=== PATIENT | male | born 1975 | race Caucasian/White ===

== ENCOUNTER 2020-10-16 16:34 | Emergency (ER) | payer MEDICARE, OTHER, SELFPAY ==
[2020-10-16 16:35] VITALS: BP 152/86; PULSE 91; RESP 12; TEMP 36.8; O2SAT 98; BMI 34.0
--- NOTE | 2020-10-16 16:45 | ED_ITS ---
HPI - Fall General Chief Complaint: Fall Stated Complaint: Fell-hit head no LOC Time Seen by Provider: 10/16/20 16:35 Source: patient Mode of arrival: EMS Limitations: no limitations History of Present Illness HPI Narrative: Patient is a 45-year-old male who is brought in by EMS for evaluation of a head injury. [place] Was walking out of the elevator and stated that he slipped on something that was on the ground. He did hit his right knee and his right hip and then hit the right side of his head. There was no loss of consciousness. He has had a TBI in the past after service. He reports headache. Has not tried anything for symptoms prior to arrival. Related Data Allergies Allergy/AdvReac Type Severity Reaction Status Date / Time fluoxetine [From Prozac] Allergy Unknown Verified 10/16/20 16:38 paroxetine [From Paxil] Allergy Unknown Verified 10/16/20 16:38 Review of Systems Constitutional Constitutional: Denies fatigue, Denies fever(s) and Reports headache(s) Eyes Eyes: Denies change in vision ENT Ears, Nose, Mouth, and Throat: Denies vertigo, Denies dizziness, Reports headache(s), Denies disequilibrium and Denies sore throat Cardiovascular Cardiovascular: Denies chest pain and Denies dyspnea Respiratory Respiratory: Denies dyspnea Gastrointestinal Gastrointestinal: Denies abdominal pain, Denies change in bowel habits, Reports nausea and Denies vomiting Genitourinary Genitourinary: Denies dysuria Genitourinary: Denies dysuria Musculoskeletal Musculoskeletal: Reports arthralgias (Right knee and right hip pain) and Denies myalgias Integumentary/Breasts Skin/Breast: Denies rash Neurologic Neurologic: Denies behavioral changes, Denies confusion, Denies vertigo, Denies dizziness, Reports headache(s) and Denies disequilibrium Psychiatric Psychiatric: Denies behavioral changes and Denies confusion Endocrine Endocrine: Denies fatigue Hematologic/Lymphatic On Anticoagulants: No Allergic/Immunologic Allergic/Immunologic: Denies urticaria Patient History Medical History TBI (traumatic brain injury) Social History Smoking Status: Never smoker Smoking Status: Never smoker Substance Use Type: marijuana Exam Initial Vital Signs Initial Vital Signs: Vital Signs Temperature 98.2 F 10/16/20 16:35 Pulse Rate 91 H 10/16/20 16:35 Respiratory Rate 12 10/16/20 16:35 Blood Pressure 152/86 H 10/16/20 16:35 Pulse Oximetry 98 10/16/20 16:35 Const General: cooperative, comfortable and well developed Limitations: mental status not altered HENMT Head: normal to inspection Eyes General: appearance normal, both eyes and all related structures Pupils: PERRL EOM: EOM intact bilaterally Chest Chest: No crepitus and No tenderness Resp Effort & Inspection: normal respiratory effort Auscultation: clear to auscultation bilaterally Cardio Rate: regular rate Rhythm: regular rhythm Skin Lesions: no lesions Rashes: no rashes Neuro General: patient alert, patient awake and patient oriented x3 Cognition: normal cognition Speech: speech normal Motor: muscle tone normal throughout Sensory Exam: no sensory deficits noted Extrem General: normal to inspection and capillary refill normal Psych Appearance: grossly normal and well kempt Scores GCS Noel coma scale eye opening: Spontaneous [place] coma scale verbal response: Orientated Noel coma scale motor response: Obey commands Noel coma scale total score: 15 Nexus Score for C-Spine Focal Neurologic deficit present: No Midline spinal tenderness present: No Altered level of conciousness present: No Intoxication present: No Distracting Injury Present: No Nexus Criteria for C-spine: 0 Course Orders Ordered: Discontinued Medications Acetaminophen (Acetaminophen 325 Mg Tablet) 650 mg PO NOW ONE Stop: 10/16/20 16:46 Last Admin: 10/16/20 16:53 Dose: 650 mg Documented by: YAMILE Vital Signs Vital signs: Vital Signs - 8 hr 10/16/20 16:35 10/16/20 16:59 10/16/20 17:00 Temperature 98.2 F Pulse Rate 91 H 87 84 Respiratory Rate 12 Blood Pressure 152/86 H 141/79 H Pulse Oximetry 98 97 95 10/16/20 17:10 Temperature Pulse Rate 87 Respiratory Rate Blood Pressure 135/79 Pulse Oximetry 98 MDM - Fall MDM Narrative Medical decision making narrative: Afebrile. There are no external signs of any trauma. I feel we can hold on any imaging for now. He has had a TBI in the past. Is complaining of a right-sided headache. He had no loss of consciousness. Patient was concerned about a concussion. We did discuss head injuries and concussions. Provided reassurance for his presenting symptoms today. He was given return precautions and follow-up instructions. He expressed understanding and agreement. Discharge Plan Departure Patient Disposition: Home Clinical Impression: Closed head injury Instructions: Closed Head Injury Activity Restrictions/Additional Instructions: You can take Tylenol and/or ibuprofen for any discomfort. It is important that you avoid activities where you could hit her head again especially why your currently having symptoms. Contact your primary provider for follow-up. Return to the emergency department for any new or worsening symptoms
[2020-10-16] MEDS: ACETAMINOPHEN 325 MG TABLET 650 MG PO (16:53)
--- NOTE | 2020-10-16 16:54 | PC.NURSE ---
patient on the phone when this nurse entered the room to scan braclet. Patient stopped talking to spouse and pointed at the left side of his head and stated This isnt right, something's not right. Patient informed provider will be notified. Patient then freely answered registration questions with no difficulty or delay in responses. Provider notified and aware.
[2020-10-16 16:59] VITALS: PULSE 87; O2SAT 97
[2020-10-16 17:00] VITALS: BP 141/79; PULSE 84; O2SAT 95
[2020-10-16 17:10] VITALS: BP 135/79; PULSE 87; O2SAT 98
== END 2020-10-16 17:22 | disposition home or self-care (01) ==
PROVIDERS: Emergency Provider Emergency Medicine
DX: S09.90XA Unspecified injury of head, initial encounter (principal); M25.561 Pain in right knee; M25.551 Pain in right hip; W19.XXXA Unspecified fall, initial encounter
CPT/HCPCS: 99282; 99283